=== PATIENT | female | born 1995 | race Caucasian/White ===

== ENCOUNTER 2016-09-19 08:04 | Emergency (ER) | payer SELFPAY ==
[2016-09-19 08:28] VITALS: BP 125/76; PULSE 75; RESP 16; TEMP 99.5; O2SAT 98
--- NOTE | 2016-09-19 08:56 | UCPHY ---
H & P Time Seen by Provider: 09/19/16 08:18 Patient Type: Established HPI/ROS: Over the past few days this patient has noted some pain and swelling to the region of the upper gluteal cleft. She has never had this occur before. She reports that the area has become quite tender and she has moderate pain at baseline becomes more severe with any pressure to the area. She also reports feeling slightly lightheaded over the past 24 hours and admits that she is apprehensive about her symptoms. ROS: Cough No fevers or chills. She reports no other constitutional complaints. She has no other skin lesions or other integumentary complaints. Musculoskeletal: No recent trauma. : Last menstrual period was normal timing 2 weeks ago. 5 point ROS is otherwise negative Past Medical/Surgical History: Otherwise healthy Smoking Status: Never smoked Physical Exam: Physical Exam Vital signs are normal. General: No acute distress HEyes: Pupils equal and react to light. Extraocular motions are intact. Lungs: No respiratory distress. Cardiac: Brisk capillary refill is intact throughout. Pulses are 2+ and symmetric in the affected extremity. Skin: There is a fluctuant lesion 1.5 x 1 cm to the upper gluteal cleft in the midline with surrounding erythema approximately 3 cm in diameter, exquisite tenderness to touch and warmth to touch. Neuro: Alert with no sensorimotor deficits. Initial differential diagnosis: Pilonidal cyst, ingrown hair, sebaceous cyst, doubt numerous a Constitutional: Initial Vital Signs Temperature (C) 37.5 C 09/19/16 08:24 Heart Rate 75 09/19/16 08:24 Respiratory Rate 16 09/19/16 08:24 Blood Pressure 125/76 H 09/19/16 08:24 O2 Sat (%) 98 09/19/16 08:24 O2 Delivery Mode Room Air Allergies/Adverse Reactions: No Known Allergies Allergy (Verified 09/19/16 08:23) Home Medications: Medication Instructions Recorded Ibuprofen [Motrin (*)] 600 mg PO Q6 PRN #30 tab 10/06/14 LORazepam [Ativan 1 mg (RX)] 0.5 - 1 mg PO TID PRN #15 tab 07/18/15 Sulfamethox/Tmp 800/160 mg 1 tab PO BID #10 tab 09/19/16 [Bactrim Ds] MDM/Departure - Depart Clinical Impression: Pilonidal abscess Instructions: Pilonidal Cyst (ED) Additional Instructions: Diagnosis: Pilonidal abscess Plan: Keep the packing in place for the next 2-3 days. Change the dressing if needed prior to then. After to 3 days and gently tugged on the protruding gauze while in the shower. Then clean the wound daily with warm soapy water. Ibuprofen and Tylenol for pain as needed Bactrim antibiotic for the next 5 days as prescribed Return for any significant worsening despite the treatment plan Prescriptions: Sulfamethox/Tmp 800/160 mg [Bactrim Ds] 1 tab PO BID #10 tab Referrals: NONE *PRIMARY CARE P,. [Primary Care Provider] - As per Instructions - PQRS PQRS Measurement: NA
== END 2016-09-19 09:04 | disposition home or self-care (01) ==
LOC: CED 08:04
PROC: 0H98XZZ Drainage of Buttock Skin, External Approach (ICD-10-PCS; principal; 2016-09-19)
DX: L05.01 Pilonidal cyst with abscess (principal)
CPT/HCPCS: 10080-PO; 99214-PO; G0463-PO